=== PATIENT | female | born 1990 | race Caucasian/White ===

== ENCOUNTER 2020-05-14 18:18 | Emergency (ER) | payer OTHER ==
[2020-05-14 18:33] VITALS: TEMP 98.3; BMI 29.1
[2020-05-14 21:45] LABS: BASO % 0.2 % (0-2.0); EOS % 0.5 % (0-4.5); HEMATOCRIT 31.4 % (32.4-45.2); HEMOGLOBIN 10.6 GM/dL (10.7-15.3); LYMPH % 14.3 % (8-40); MCHC 33.7 g/dl (32.0-36.0); MEAN CELL VOLUME 86.2 fl (80-96); MEAN PLT VOLUME 9.1 fl (7.5-11.1); MONO % 5.2 % (3.8-10.2); NEUT % 79.8 % (42.8-82.8); PLATELET COUNT 337 K/MM3 (134-434); RBC 3.64 M/mm3 (3.60-5.2); RDW 13.5 % (11.6-15.6); WHITE BLOOD COUNT 9.7 K/mm3 (4.0-10.0)
[2020-05-14 22:03] LABS: CHLORIDE 104 mmol/L (98-107); POTASSIUM 3.6 mmol/L (3.5-5.1); SODIUM 137 mmol/L (136-145)
[2020-05-14 22:05] LABS: CALCIUM 8.4 mg/dL (8.5-10.1)
[2020-05-14 22:06] LABS: ANION GAP 9 MMOL/L (8-16); BLOOD UREA NITROGEN 3.8 mg/dL (7-18); CO2 24 mmol/L (21-32); GLUCOSE,RANDOM 87 mg/dL (74-106); LIPASE 90 U/L (73-393)
[2020-05-14 22:09] LABS: CREATININE 0.4 mg/dL (0.55-1.3); SGOT/AST 18 U/L (15-37); SGPT/ALT 17 U/L (13-61)
[2020-05-14 22:10] LABS: BILIRUBIN,TOTAL 0.3 mg/dL (0.2-1); TOT PROT 7.2 g/dl (6.4-8.2)
[2020-05-14 22:25] LABS: ALK PHOS 96 U/L (45-117)
[2020-05-14 22:41] VITALS: BP 105/69; PULSE 77
[2020-05-14 22:57] LABS: ACTIVATED PTT 27.8 SECONDS (25.2-36.5); INR 0.97 (0.83-1.09); PROTHROMBIN TIME (PATIENT) 11.9 SEC (9.7-13.0)
== END 2020-05-15 00:50 | disposition home or self-care (01) ==
LOC: JER 18:18
DX: R10.13 Epigastric pain (principal)
CPT/HCPCS: 36415; 71045-TC-FY; 80053; 82550; 83690; 84484; 85025; 85610; 85730; 93005; 93010; 99285-25

== ENCOUNTER 2022-12-23 01:50 | Emergency (ER) | payer OTHER ==
[2022-12-23 01:56] VITALS: BMI 28.3
[2022-12-23] MEDS ORDERED: ACETAMINOPHEN 1000 MG/100 ML BAG IVPB ONE (02:38)
[2022-12-23] MEDS ORDERED: SODIUM CHLORIDE 0.9% 500 ML INFUS.BAG IV ONE (02:47)
[2022-12-23] MEDS ORDERED: ONDANSETRON 4 MG/2 ML VIAL IVPUSH ONE (02:47)
[2022-12-23] MEDS ORDERED: ACETAMINOPHEN INJECTION 100 ML IVPB ONE (02:58)
[2022-12-23] MEDS ORDERED: ONDANSETRON 4 MG/2 ML VIAL ONE (02:58)
[2022-12-23 03:31] LABS: BASO % 0.3 % (0-2.0); EOS % 2.2 % (0-4.5); HEMOGLOBIN 12.2 GM/dL (10.7-15.3); LYMPH % 22.8 % (8-40); MCH 30.4 pg (25.7-33.7); MCHC 34.8 g/dl (32.0-36.0); MEAN CELL VOLUME 87.4 fl (80-96); MEAN PLT VOLUME 7.8 fl (7.5-11.1); MONO % 8.8 % (3.8-10.2); NEUT % 65.9 % (42.8-82.8); PLATELET COUNT 272 10^3/uL (134-434); RBC 4.01 M/mm3 (3.60-5.2); RDW 15.8 % (11.6-15.6); WHITE BLOOD COUNT 7.2 K/mm3 (4.0-10.0)
[2022-12-23 03:39] LABS: INR 0.97 (0.83-1.09); PROTHROMBIN TIME (PATIENT) 11.2 SEC (9.7-13.0)
[2022-12-23 03:42] LABS: ACTIVATED PTT 33.2 SECONDS (25.2-36.5)
[2022-12-23 03:53] LABS: POTASSIUM 3.3 mmol/L (3.5-5.1)
[2022-12-23 03:56] LABS: ALBUMIN 3.6 g/dl (3.4-5.0); BLOOD UREA NITROGEN 11.4 mg/dL (7-18); CALCIUM 8.5 mg/dL (8.5-10.1)
[2022-12-23 03:59] LABS: CREATININE 0.6 mg/dL (0.55-1.3)
[2022-12-23 04:01] LABS: BILIRUBIN,TOTAL 0.5 mg/dL (0.2-1); TOT PROT 6.8 g/dl (6.4-8.2)
[2022-12-23 04:59] LABS: PH,URINE 5.5 (5.0-8.0); URINE APPEARANCE CLEAR; URINE BILIRUBIN NEGATIVE (NEGATIVE); URINE COLOR YELLOW; URINE GLUCOSE (UA) NEGATIVE (NEGATIVE); URINE KETONE NEGATIVE (NEGATIVE); URINE LEUK ESTERASE 2+ (NEGATIVE); URINE NITRITE NEGATIVE (NEGATIVE); URINE PROTEIN NEGATIVE (NEGATIVE)
[2022-12-23 06:26] VITALS: RESP 18
[2022-12-23 08:37] LABS: EPI CELLS 10.6 /uL (0-25.1); HYALINE CASTS 0.58 /uL (0-3.1); URINE BACTERIA 145.5 /uL (0-1359); URINE RBC 61.2 /uL (0-23.9); URINE WBC 363.6 /uL (0-25.8)
[2022-12-23 09:31] VITALS: BP 101/61; PULSE 70; TEMP 98.9
== END 2022-12-23 10:30 | disposition home or self-care (01) ==
LOC: JER 01:50
PROC: 3E033NZ Introduction of Analgesics, Hypnotics, Sedatives into Peripheral Vein, Percutaneous Approach (ICD-10-PCS; principal; 2022-12-23)
PROC: 3E033GC Introduction of Other Therapeutic Substance into Peripheral Vein, Percutaneous Approach (ICD-10-PCS; 2022-12-23)
DX: R10.11 Right upper quadrant pain (principal); R11.0 Nausea
CPT/HCPCS: 36415; 74177-TC; 76705-TC; 80053; 81003; 83690; 84703; 85025; 85610; 85730; 86850; 86900; 86901; 87086; 93005; 93010; 99285-25

== ENCOUNTER 2023-01-17 14:36 | Inpatient (IN) | payer OTHER ==
[2023-01-17] MEDS ORDERED: KETOROLAC TROMETHAMINE 30 MG/1 ML VIAL IVPUSH ONE (15:27)
[2023-01-17] MEDS ORDERED: KETOROLAC TROMETHAMINE 30 MG/1 ML VIAL ONE (15:54)
[2023-01-17 16:08] LABS: BASO % 0.3 % (0-2.0); EOS % 1.9 % (0-4.5); HEMATOCRIT 39.2 % (32.4-45.2); HEMOGLOBIN 13.1 GM/dL (10.7-15.3); LYMPH % 19.2 % (8-40); MCH 29.8 pg (25.7-33.7); MCHC 33.3 g/dl (32.0-36.0); MEAN CELL VOLUME 89.5 fl (80-96); MEAN PLT VOLUME 8.2 fl (7.5-11.1); MONO % 7.4 % (3.8-10.2); NEUT % 71.2 % (42.8-82.8); PLATELET COUNT 316 10^3/uL (134-434); RBC 4.38 M/mm3 (3.60-5.2); RDW 14.2 % (11.6-15.6); WHITE BLOOD COUNT 8.9 K/mm3 (4.0-10.0)
[2023-01-17 16:12] LABS: EPI CELLS >36 /uL (0-25.1); HYALINE CASTS 0 /uL (0-3.1); URINE APPEARANCE CLEAR; URINE BACTERIA 109 /uL (0-1359); URINE BILIRUBIN NEGATIVE (NEGATIVE); URINE COLOR YELLOW; URINE GLUCOSE (UA) NEGATIVE (NEGATIVE); URINE KETONE NEGATIVE (NEGATIVE); URINE LEUK ESTERASE 2+ (NEGATIVE); URINE NITRITE NEGATIVE (NEGATIVE); URINE PROTEIN NEGATIVE (NEGATIVE); URINE RBC 14 /uL (0-23.9); URINE UROBILINOGEN 0.2 mg/dL (0.2-1.0); URINE WBC 92 /uL (0-25.8)
[2023-01-17 16:14] LABS: INR 1.02 (0.83-1.09); PROTHROMBIN TIME (PATIENT) 11.8 SEC (9.7-13.0)
[2023-01-17 16:17] LABS: ACTIVATED PTT 36.5 SECONDS (25.2-36.5)
[2023-01-17 16:18] LABS: CHLORIDE 103 mmol/L (98-107); POTASSIUM 3.5 mmol/L (3.5-5.1); SODIUM 138 mmol/L (136-145)
[2023-01-17 16:20] LABS: CALCIUM 8.9 mg/dL (8.5-10.1)
[2023-01-17 16:21] LABS: ALBUMIN 4.3 g/dl (3.4-5.0); ANION GAP 10 mmol/L (4-13); BLOOD UREA NITROGEN 10.7 mg/dL (7-18); CO2 26 mmol/L (21-32); GLUCOSE,RANDOM 99 mg/dL (74-106)
[2023-01-17 16:24] LABS: CREATININE 0.6 mg/dL (0.55-1.3); SGOT/AST 127 U/L (15-37); SGPT/ALT 76 U/L (13-61)
[2023-01-17 16:25] LABS: BILIRUBIN,TOTAL 1.2 mg/dL (0.2-1)
[2023-01-17 16:26] LABS: TOT PROT 8.1 g/dl (6.4-8.2)
[2023-01-17 16:27] LABS: ALK PHOS 75 U/L (45-117)
[2023-01-17 16:40] LABS: LIPASE 2393 U/L (73-393)
[2023-01-17] MEDS ORDERED: LACTATED RINGERS SOLUTION 1000 ML INFUS.BAG IV ONE (16:48)
[2023-01-17] MEDS ORDERED: ONDANSETRON 4 MG/2 ML VIAL IVPUSH ONE (17:06)
[2023-01-17] MEDS ORDERED: ONDANSETRON 4 MG/2 ML VIAL ONE (17:08)
[2023-01-17] MEDS ORDERED: morphine CARPU-JECT 4 MG/1 ML DISP.SYRIN IVPUSH ONE (18:35)
[2023-01-17] MEDS ORDERED: morphine SULFATE 4 MG/ML VIAL ONE (18:51)
[2023-01-17 21:03] LABS: CHOLESTEROL 194 mg/dL (50-200)
[2023-01-17 21:05] LABS: LDL CHOLESTEROL (ONLY SJRH) 124 mg/dL (5-100)
[2023-01-17 21:06] LABS: HDL CHOLESTEROL 61 mg/dL (40-60)
[2023-01-17 22:57] LABS: BILIRUBIN,DIRECT 0.6 mg/dL (0.0-0.2)
[2023-01-17] MEDS ORDERED: CEFTRIAXONE 1 GM/50 ML BAG ONE (23:34)
[2023-01-18] MEDS ORDERED: LACTATED RINGERS SOLUTION 1,000 ML/1,000 ML INFUS.BAG IV SCH (01:00)
[2023-01-18] MEDS ORDERED: CEFTRIAXONE 1 GM in DEXTROSE 5%-WATER - 50 ML IVPB ONE (01:00)
[2023-01-18 05:01] VITALS: BMI 30.4
[2023-01-18] MEDS: ENOXAPARIN NA (PORCINE) 40 MG/0.4 ML DISP.SYRIN SQ SCH (09:34)
[2023-01-18] MEDS: CEFTRIAXONE 1 GM in DEXTROSE 5%-WATER - 50 ML IVPB SCH (09:39)
[2023-01-18 10:26] LABS: HEMATOCRIT 33.9 % (32.4-45.2); HEMOGLOBIN 11.7 GM/dL (10.7-15.3); MCH 30.7 pg (25.7-33.7); MCHC 34.4 g/dl (32.0-36.0); MEAN CELL VOLUME 89.3 fl (80-96); MEAN PLT VOLUME 8.5 fl (7.5-11.1); PLATELET COUNT 254 10^3/uL (134-434); RBC 3.79 M/mm3 (3.60-5.2); RDW 14.1 % (11.6-15.6); WHITE BLOOD COUNT 3.2 K/mm3 (4.0-10.0)
[2023-01-18 10:51] LABS: CHLORIDE 109 mmol/L (98-107); POTASSIUM 3.8 mmol/L (3.5-5.1); SODIUM 142 mmol/L (136-145)
[2023-01-18] MEDS: LACTATED RINGERS SOLUTION 1,000 ML/1,000 ML INFUS.BAG IV SCH ×2 (11:14→21:49)
[2023-01-18 11:43] LABS: ANION GAP 7 mmol/L (4-13); CO2 26 mmol/L (21-32)
[2023-01-18 11:51] LABS: CALCIUM 8.6 mg/dL (8.5-10.1)
[2023-01-18 11:52] LABS: ALBUMIN 3.5 g/dl (3.4-5.0); GLUCOSE,RANDOM 81 mg/dL (74-106)
[2023-01-18 11:54] LABS: SGPT/ALT 355 U/L (13-61)
[2023-01-18 11:55] LABS: BILIRUBIN,TOTAL 1.5 mg/dL (0.2-1); CREATININE 0.6 mg/dL (0.55-1.3); PHOSPHOROUS 3.9 mg/dL (2.5-4.9); SGOT/AST 465 U/L (15-37); TOT PROT 6.5 g/dl (6.4-8.2)
[2023-01-18 12:04] LABS: ALK PHOS 134 U/L (45-117)
[2023-01-19 08:17] VITALS: RESP 19
[2023-01-19 09:32] LABS: BASO % 0.4 % (0-2.0); HEMATOCRIT 34.4 % (32.4-45.2); HEMOGLOBIN 11.7 GM/dL (10.7-15.3); LYMPH % 33.6 % (8-40); MCH 30.8 pg (25.7-33.7); MCHC 34.1 g/dl (32.0-36.0); MEAN CELL VOLUME 90.3 fl (80-96); MEAN PLT VOLUME 8.4 fl (7.5-11.1); MONO % 6.3 % (3.8-10.2); NEUT % 58.7 % (42.8-82.8); PLATELET COUNT 269 10^3/uL (134-434); RBC 3.81 M/mm3 (3.60-5.2); WHITE BLOOD COUNT 4.8 K/mm3 (4.0-10.0)
[2023-01-19 09:44] LABS: POTASSIUM 3.6 mmol/L (3.5-5.1)
[2023-01-19] MEDS: ENOXAPARIN NA (PORCINE) 40 MG/0.4 ML DISP.SYRIN SQ SCH (09:47)
[2023-01-19 10:10] LABS: ALBUMIN 3.5 g/dl (3.4-5.0); CALCIUM 8.2 mg/dL (8.5-10.1)
[2023-01-19 10:11] LABS: BLOOD UREA NITROGEN 11.9 mg/dL (7-18)
[2023-01-19 10:12] LABS: CREATININE 0.5 mg/dL (0.55-1.3)
[2023-01-19 10:14] LABS: TOT PROT 6.6 g/dl (6.4-8.2)
[2023-01-19] MEDS ORDERED: LACTATED RINGERS SOLUTION 1,000 ML/1,000 ML INFUS.BAG IV SCH (10:18)
[2023-01-19] MEDS: CEFTRIAXONE 1 GM in DEXTROSE 5%-WATER - 50 ML IVPB SCH (11:07)
[2023-01-19 14:46] VITALS: BP 95/58; PULSE 75; TEMP 98.3
== END 2023-01-19 18:13 | disposition home or self-care (01) | DRG 282 ==
LOC: JER 14:36 → JERBED 19:02 → J6S 01-18 02:35
PROVIDERS: ADMIT Internal Medicine; ATTEND Internal Medicine
DX: K85.10 Biliary acute pancreatitis without necrosis or infection (principal); K80.20 Calculus of gallbladder without cholecystitis without obstruction; N39.0 Urinary tract infection, site not specified; R74.01 Elevation of levels of liver transaminase levels; K80.50 Calculus of bile duct without cholangitis or cholecystitis without obstruction
CPT/HCPCS: 36415; 74181-TC; 76705-TC; 80053; 80061; 80307; 81003; 82248; 83690; 83735; 84100; 84703; 85025; 85027; 85610; 85730; 86140; 86850; 86900; 86901; 87086; 87186; 93005; 93010; 99285-25

== ENCOUNTER 2023-01-24 04:19 | Day surgery (SDC) | payer OTHER ==
[2023-01-20 16:14] VITALS: BMI 29.8
[2023-01-24] MEDS ORDERED: FENTANYL CITRATE/PF 50 MCG/ML VIAL ONE ×4 (06:57→10:13)
[2023-01-24] MEDS ORDERED: MIDAZOLAM HCL 2 MG/2 ML SINGLE DOSE VIAL ONE (06:57)
[2023-01-24] MEDS ORDERED: ROCURONIUM BROMIDE 50 MG/5 ML SYRINGE ONE (06:59)
[2023-01-24] MEDS ORDERED: PROPOFOL 60 ML ONE (06:59)
[2023-01-24] MEDS ORDERED: SUCCINYLCHOLINE CHLORIDE 200 MG/10 ML SYRINGE ONE (07:03)
[2023-01-24] MEDS ORDERED: INDOCYANINE GREEN 25 MG/10 ML VIAL IVPUSH ONE (07:23)
[2023-01-24] MEDS ORDERED: BUPIVACAINE HCL/PF 0.25% (2.5MG/ML) 10 ML VIAL ONE (07:24)
[2023-01-24] MEDS ORDERED: CEFOXITIN SODIUM 1 GM IVPB ONE (08:15)
[2023-01-24] MEDS ORDERED: cefOXitin SODIUM 2 GM VIAL (RESTRICTED TO ID) IVPB ONE (08:15)
[2023-01-24] MEDS ORDERED: cefOXitin SODIUM 1 GM VIAL (RESTRICTED TO ID) IVPB ONE (08:18)
[2023-01-24] MEDS ORDERED: HYDROmorphone HCl 2 MG/ML VIAL ONE (08:25)
[2023-01-24] MEDS ORDERED: BUPIVACAINE HCL/PF 2.5 MG/ML - 30 ML VIAL IJ ONE (08:45)
[2023-01-24] MEDS ORDERED: SUGAMMADEX SODIUM 200 MG/2 ML VIAL ONE (08:58)
[2023-01-24] MEDS ORDERED: KETOROLAC TROMETHAMINE 30 MG/1 ML VIAL ONE (10:37)
[2023-01-24] MEDS ORDERED: LIDOCAINE HCL/PF 2% SDV 5ML VIAL ONE (10:37)
[2023-01-24] MEDS ORDERED: ONDANSETRON 4 MG/2 ML VIAL ONE (10:37)
[2023-01-24] MEDS ORDERED: DEXAMETHASONE SOD PHOSPHATE 4 MG/1 ML VIAL ONE (10:37)
[2023-01-24] MEDS ORDERED: oxyCODONE HCL 5 MG TABLET PO PRN (10:42)
[2023-01-24] MEDS ORDERED: ONDANSETRON 4 MG/2 ML VIAL IVPUSH PRN (10:42)
[2023-01-24] MEDS ORDERED: LACTATED RINGERS SOLUTION 1,000 ML IV SCH (10:45)
[2023-01-24] MEDS ORDERED: ACETAMINOPHEN INJECTION 100 ML IVPB ONE (10:57)
[2023-01-24 13:05] VITALS: RESP 16
[2023-01-24] MEDS ORDERED: oxyCODONE HCL 5 MG TABLET ONE (13:24)
[2023-01-24 17:31] VITALS: BP 111/51; PULSE 98; TEMP 97.3
== END 2023-01-24 17:44 | disposition home or self-care (01) ==
LOC: JASU-SURG 04:19
PROVIDERS: ATTEND Surgery
PROC: 0FT44ZZ Resection of Gallbladder, Percutaneous Endoscopic Approach (ICD-10-PCS; principal; 2023-01-24 08:00)
DX: K80.20 Calculus of gallbladder without cholecystitis without obstruction (principal)
CPT/HCPCS: 47562; S2900; 81025; 88304-TC; 94760